=== PATIENT | male | born 1940 ===

== ENCOUNTER 2024-02-13 02:40 | Inpatient (IN) | payer MEDICARE ==
[~2024-02-13] VITALS: Ht 170.2 cm; Wt 72.6 kg
[2024-02-13] MEDS ORDERED: LIPITOR10 MG PO (03:06)
[2024-02-13] MEDS ORDERED: VITAMIN D325 MCG PO (03:08)
[2024-02-13] MEDS ORDERED: PEPCID40 MG PO (03:10)
[2024-02-13] MEDS ORDERED: VITAMIN B121000 MC3 PO (03:10)
[2024-02-13] MEDS ORDERED: IRON325 M1 PO (03:11)
[2024-02-13] MEDS ORDERED: LASIX20 MG PO (03:12)
[2024-02-13] MEDS ORDERED: METOPROLOL SUCC50 M1 PO (03:13)
[2024-02-13] MEDS ORDERED: PIOGLITAZONE HC15 MG PO (03:14)
[2024-02-13] MEDS ORDERED: REMERON15 M2 PO (03:15)
[2024-02-13] MEDS ORDERED: XARELTO10 MG PO (03:16)
[2024-02-13] MEDS ORDERED: CHOLESTYRAMINE P4 GM PO (03:18)
[2024-02-13] MEDS ORDERED: GLIPIZIDE10 M2 PO (03:19)
[2024-02-13] MEDS ORDERED: METFORMIN HYD1000 MG PO (03:20)
[2024-02-13] MEDS ORDERED: LOMOTIL 2.5-0.1 EACH PO (03:21)
[2024-02-13 11:00] VITALS: BP 117/65
[2024-02-13 14:00] VITALS: BP 117/65
[2024-02-13] MEDS ORDERED: Atropine Sulfate/Diphenoxyla 1 TAB TAB PO PRN (14:10)
[2024-02-13] MEDS ORDERED: glipiZIDE 10 MG TAB PO SCH (16:30)
[2024-02-13 18:06] LABS: BILIRUBIN Negative (Negative); BLOOD 2+ (Negative); CLARITY Turbid (Clear); COLOR Yellow (Yellow); GLUCOSE 2+ (Negative); KETONE Trace (Negative); LEUKO ESTERASE 3+ (Negative); NITRITE Positive (Negative); PH 5.5 (4.5-8.0); UROBILINOGEN 0.2 E.U./dl (0.0-1.0)
[2024-02-13 18:20] LABS: BACTERIA 4+; URIC ACID CRYSTALS 1+; WBC TNTC wbc/hpf (0-5)
[2024-02-13 20:00] VITALS: BP 159/67
[2024-02-13] MEDS ORDERED: Mirtazapine 15 MG TAB PO SCH (21:00)
[2024-02-13] MEDS ORDERED: RISPERIDONE 0.5 MG TAB PO SCH (21:00)
[2024-02-13] MEDS ORDERED: ATORVASTATIN CALCIUM 10 MG TAB PO SCH (21:00)
[2024-02-13] MEDS ORDERED: CHOLESTYRAMINE 4 GM PACKET PO SCH (22:00)
[2024-02-14 07:11] LABS: HEMATOCRIT 34.2 % (42.0-52.0); MEAN CELL VOLUME 91.9 fl (80.0-94.0); MEAN CORPUSCULAR HGB 30.4 pg (27.0-31.0); MEAN PLATELET VOLUME 9.6 fl (9.6-12.3); PLATELET COUNT AUTOMATED 300 10*3/uL (130-400); RED BLOOD COUNT 3.72 10*6/uL (4.50-5.90); RED CELL DISTRI WIDTH 17.7 % (0-14.5); WHITE BLOOD COUNT 5.3 10*3/uL (4.8-10.8)
[2024-02-14 07:15] LABS: MANUAL DIFF REFLEX YES
[2024-02-14 07:36] LABS: ALKALINE PHOSPHATASE 98 U/L (46-116); BUN 10 mg/dl (9-23); CHLORIDE 110 mmol/L (98-107); CHOLESTEROL 105 mg/dL (<200); LDL CHOLESTEROL 54 mg/dL (9-159); POTASSIUM 3.8 mmol/L (3.4-5.1); TRIGLYCERIDES 103 mg/dl (<150)
[2024-02-14 07:39] LABS: SGPT/ALT < 7 U/L (5-49)
[2024-02-14 07:44] LABS: ACANTHOCYTES FEW; BASOPHILS 1 % (0-1); BURR CELLS FEW; OVALOCYTES FEW; PLATELET SUFFICIENCY NORMAL (NORMAL); POLYCHROMASIA SLIGHT; SCHISTOCYTES FEW; TOTAL CELLS COUNTED 100 #CELLS
[2024-02-14 08:00] VITALS: BP 112/62
[2024-02-14] MEDS ORDERED: METOPROLOL SUCCINATE XR 50 MG TAB PO SCH (09:00)
[2024-02-14] MEDS ORDERED: Rivastigmine Tartrate 4.6 MG/24 HR PATCH T SCH (09:00)
[2024-02-14] MEDS ORDERED: RIVAROXABAN 10 MG TAB PO SCH (09:00)
[2024-02-14] MEDS ORDERED: FUROSEMIDE 20 MG TAB PO SCH (09:00)
[2024-02-14] MEDS ORDERED: FAMOTIDINE 20 MG TAB PO SCH (09:00)
[2024-02-14] MEDS ORDERED: Pioglitazone Hydrochloride 15 MG TAB PO SCH (09:00)
[2024-02-14] MEDS ORDERED: FERROUS SULFATE 325 MG TAB PO SCH ×2 (09:00→10:00)
[2024-02-14] MEDS ORDERED: Doxycycline Hyclate 100 MG CAP PO SCH (09:30)
[2024-02-14 14:00] VITALS: BP 112/62
[2024-02-14 20:00] VITALS: BP 117/70
[2024-02-14] MEDS ORDERED: RAMELTEON 8 MG TAB PO SCH (21:00)
[2024-02-15 07:36] VITALS: BP 104/53
[2024-02-15] MEDS ORDERED: Cholecalciferol 2,000 UNIT TABLET (50 MCG) PO SCH (09:00)
[2024-02-15 14:18] VITALS: BP 104/53
[2024-02-15 20:00] VITALS: BP 113/54
[2024-02-16 07:45] VITALS: BP 122/52
[2024-02-16 14:00] VITALS: BP 122/52
[2024-02-16 19:07] VITALS: BP 109/64
[2024-02-16] MEDS ORDERED: Mirtazapine 15 MG TAB PO SCH (21:00)
[2024-02-16] MEDS ORDERED: CALAMINE 120 ML BOT T SCH (21:00)
[2024-02-16] MEDS ORDERED: NYSTATIN 15 GM BOT T SCH (21:00)
[2024-02-17 08:00] VITALS: BP 120/58
[2024-02-17] MEDS ORDERED: Rivastigmine Tartrate 9.5 MG/24 HR PATCH T SCH (09:00)
[2024-02-17 19:23] VITALS: BP 143/59
[2024-02-18 08:00] VITALS: BP 124/58
[2024-02-18] MEDS ORDERED: DIVALPROEX (DR) 250 MG TAB PO SCH (13:00)
[2024-02-18 20:00] VITALS: BP 101/50
[2024-02-18] MEDS ORDERED: Ciprofloxacin Hydrochloride 500 MG TAB PO SCH (21:00)
[2024-02-18] MEDS ORDERED: Mirtazapine 15 MG TAB PO SCH (21:00)
[2024-02-19 08:25] VITALS: BP 113/65
[2024-02-19 20:00] VITALS: BP 116/52
[2024-02-20 07:02] LABS: HEMATOCRIT 36.1 % (42.0-52.0); MEAN CELL VOLUME 95.8 fl (80.0-94.0); MEAN CORPUSCULAR HGB 30.2 pg (27.0-31.0); MEAN CORPUSCULAR HGB CONC 31.6 g/dl (33.0-37.0); MEAN PLATELET VOLUME 9.4 fl (9.6-12.3); PLATELET COUNT AUTOMATED 352 10*3/uL (130-400); RED BLOOD COUNT 3.77 10*6/uL (4.50-5.90); RED CELL DISTRI WIDTH 17.7 % (0-14.5); WHITE BLOOD COUNT 7.1 10*3/uL (4.8-10.8)
[2024-02-20 07:11] LABS: MANUAL DIFF REFLEX YES
[2024-02-20 07:33] LABS: BASOPHILS 1 % (0-1); TOTAL CELLS COUNTED 100 #CELLS
[2024-02-20 07:34] LABS: PLATELET SUFFICIENCY NORMAL (NORMAL)
[2024-02-20 08:07] LABS: ALKALINE PHOSPHATASE 103 U/L (46-116); BUN 7 mg/dl (9-23); CHLORIDE 108 mmol/L (98-107); POTASSIUM 4.7 mmol/L (3.4-5.1); TOTAL PROTEIN 5.8 gm/dL (6.0-8.0)
[2024-02-20 08:13] LABS: SGPT/ALT < 7 U/L (5-49)
[2024-02-20] MEDS ORDERED: RIVASTIGMINE 13.3 MG/24 HR TDM T SCH (09:00)
[2024-02-20 20:00] VITALS: BP 116/48
[2024-02-21 08:00] VITALS: BP 133/66
[2024-02-21] MEDS ORDERED: RAMELTEON8 MG PO (09:51)
[2024-02-21] MEDS ORDERED: MIRTAZAPINE15 M2 PO (09:51)
[2024-02-21] MEDS ORDERED: RIVASTIGMINE1 EAC2 T (09:51)
[2024-02-21] MEDS ORDERED: DIVALPROEX SOD250 MG PO (09:51)
[2024-02-21 19:25] VITALS: BP 121/53
[2024-02-22 07:04] VITALS: BP 118/64
[2024-02-22 20:00] VITALS: BP 116/57
[2024-02-23 08:34] VITALS: BP 134/62
[2024-02-23 20:00] VITALS: BP 121/50
[2024-02-24 08:00] VITALS: BP 117/52
[2024-02-24 19:10] VITALS: BP 141/70
[2024-02-25 08:00] VITALS: BP 126/55
[2024-02-25 20:00] VITALS: BP 128/72
[2024-02-26 07:59] VITALS: BP 108/66
[2024-02-26] MEDS ORDERED: Vitamin D 1,000 IU TAB (25 MCG) PO SCH (09:00)
[2024-02-26] MEDS ORDERED: CYANOCOBALAMIN 500 MCG TAB PO SCH (10:00)
== END 2024-02-26 08:00 | DRG 885 ==
LOC: 3N 02:40
PROVIDERS: Nurse Practitioner; ADMIT Psychiatry & Neurology Psychiatry; ATTEND Psychiatry & Neurology Psychiatry
PROC: 0HBRXZZ Excision of Toe Nail, External Approach (ICD-10-PCS; principal; 2024-02-22)
PROC: 0HBRXZZ Excision of Toe Nail, External Approach (ICD-10-PCS; 2024-02-22)
PROC: 0HBRXZZ Excision of Toe Nail, External Approach (ICD-10-PCS; 2024-02-22)
PROC: 0HBRXZZ Excision of Toe Nail, External Approach (ICD-10-PCS; 2024-02-22)
PROC: 0HBRXZZ Excision of Toe Nail, External Approach (ICD-10-PCS; 2024-02-22)
PROC: 0HBRXZZ Excision of Toe Nail, External Approach (ICD-10-PCS; 2024-02-22)
PROC: 0HBRXZZ Excision of Toe Nail, External Approach (ICD-10-PCS; 2024-02-22)
PROC: 0HBRXZZ Excision of Toe Nail, External Approach (ICD-10-PCS; 2024-02-22)
PROC: 0HBRXZZ Excision of Toe Nail, External Approach (ICD-10-PCS; 2024-02-22)
PROC: 0HBRXZZ Excision of Toe Nail, External Approach (ICD-10-PCS; 2024-02-22)
PROC: GZHZZZZ Group Psychotherapy (ICD-10-PCS; 2024-02-22)
PROC: GZ51ZZZ Individual Psychotherapy, Behavioral (ICD-10-PCS; 2024-02-22)
DX: F33.2 Major depressive disorder, recurrent severe without psychotic features (principal); F63.81 Intermittent explosive disorder; I11.0 Hypertensive heart disease with heart failure; B95.2 Enterococcus as the cause of diseases classified elsewhere; R45.851 Suicidal ideations; C18.7 Malignant neoplasm of sigmoid colon; T83.511A Infection and inflammatory reaction due to indwelling urethral catheter, initial encounter; I50.22 Chronic systolic (congestive) heart failure; F02.82 Dementia in other diseases classified elsewhere, unspecified severity, with psychotic disturbance; N39.0 Urinary tract infection, site not specified; F43.21 Adjustment disorder with depressed mood; R29.6 Repeated falls; J30.2 Other seasonal allergic rhinitis; N13.9 Obstructive and reflux uropathy, unspecified; G30.9 Alzheimer's disease, unspecified; E78.2 Mixed hyperlipidemia; I48.0 Paroxysmal atrial fibrillation; F41.9 Anxiety disorder, unspecified; E11.9 Type 2 diabetes mellitus without complications; R33.9 Retention of urine, unspecified; Y84.6 Urinary catheterization as the cause of abnormal reaction of the patient, or of later complication, without mention of misadventure at the time of the procedure; B35.1 Tinea unguium; M20.42 Other hammer toe(s) (acquired), left foot; M20.41 Other hammer toe(s) (acquired), right foot; Z79.84 Long term (current) use of oral hypoglycemic drugs; Y92.89 Other specified places as the place of occurrence of the external cause; Z79.899 Other long term (current) drug therapy; B96.1 Klebsiella pneumoniae [K. pneumoniae] as the cause of diseases classified elsewhere